=== PATIENT | male | born 1945 | race Caucasian/White ===

== ENCOUNTER 2023-01-12 23:37 | Inpatient (IN) | payer MEDICARE, OTHER ==
[2023-01-13 00:10] VITALS: BMI 20.9
[2023-01-13] MEDS ORDERED: Calcium Carbonate 500 MG ChewTAB PO PRN (00:11)
[2023-01-13] MEDS ORDERED: HYDROcodone/Acetaminophen 5/325 mg Tablet PO PRN (00:11)
[2023-01-13] MEDS ORDERED: Senokot S 8.6-50 MG TAB PO PRN (00:11)
[2023-01-13] MEDS ORDERED: Acetaminophen 325 MG TAB PO PRN (00:11)
[2023-01-13] MEDS ORDERED: Guaifenesin DM 100-10/5 ML UDCUP PO PRN (00:11)
[2023-01-13] MEDS ORDERED: Zolpidem Tartrate 5 MG TAB PO PRN (00:11)
[2023-01-13] MEDS ORDERED: Ondansetron PF 4 MG/2 ML Vial IVP PRN (00:11)
[2023-01-13] MEDS ORDERED: Nitroglycerin 0.4 MG TAB (25 Tab Bottle) SL PRN (00:26)
[2023-01-13] MEDS ORDERED: Sodium Chloride 0.9% 500 ML IV SCH (00:30)
[2023-01-13 01:12] LABS: CKMB 5.2 ng/mL (0-6.6)
[2023-01-13 05:52] LABS: Anion Gap 14 mmol/L (10-20); BUN (Urea Nitrogen) 18 mg/dL (8.4-25.7); CK (CPK) 191 U/L (30-200); Calc. Creatinine Clearance 55 mL/min (70-130); Calcium 8.7 mg/dL (7.8-10.44); Carbon Dioxide 21 mmol/L (23-31); Chloride 111 mmol/L (98-107); Estimated GFR 75; Glucose 96 mg/dL (83-110); Potassium 4.2 mmol/L (3.5-5.1); Sodium 142 mmol/L (136-145)
[2023-01-13 06:08] LABS: CKMB 4.5 ng/mL (0-6.6)
[2023-01-13] MEDS: Thiamine 100 MG TAB PO SCH (09:43)
[2023-01-13] MEDS: Aspirin 81 mg Enteric Coated Tablet PO SCH (09:43)
[2023-01-13] MEDS: Metoprolol Tartrate 25 MG TAB PO SCH ×3 (09:44→22:23)
[2023-01-13] MEDS: Folic Acid 1 MG TAB PO SCH (09:46)
[2023-01-13] MEDS: Multivitamin W/ Minerals 1 TAB PO SCH (09:46)
[2023-01-13] MEDS ORDERED: Lorazepam 1 MG TAB PO PRN (09:59)
[2023-01-13] MEDS ORDERED: Lorazepam 2 MG/ML VIAL IVPB PRN (09:59)
[2023-01-13] MEDS ORDERED: Electrolyte Replacement Protocol 1 EACH FS PRN (10:00)
[2023-01-13] MEDS ORDERED: Nicotine 14 MG PATCH TD PRN (10:01)
[2023-01-13 11:38] LABS: Troponin I 0.052 ng/mL (< 0.028)
[2023-01-13] MEDS ORDERED: Communication Order-Pharmacy FS SCH (13:15)
[2023-01-13] MEDS: Atorvastatin Calcium 20 MG TAB PO SCH (22:23)
[2023-01-14] MEDS: Thiamine 100 MG TAB PO SCH (05:57)
[2023-01-14] MEDS: Folic Acid 1 MG TAB PO SCH (05:57)
[2023-01-14] MEDS: Multivitamin W/ Minerals 1 TAB PO SCH (05:57)
[2023-01-14] MEDS: Metoprolol Tartrate 25 MG TAB PO SCH ×2 (05:58→20:17)
[2023-01-14] MEDS: Aspirin 81 mg Enteric Coated Tablet PO SCH (05:58)
[2023-01-14] MEDS: Sodium Chloride 0.9% 1,000 ML IV SCH ×4 (05:59→20:17)
[2023-01-14 06:17] LABS: #Basophils 0.1 10x3/uL (0.0-0.2); #Eosinphils 0.4 10x3/uL (0.0-0.5); #Monocytes 0.5 10x3/uL (0.0-1.1); #Neutrophils 4.1 10x3/uL (1.5-8.4); %Basophils 1.5 % (0.0-2.0); %Eosinophils 6.1 % (0.0-6.0); %Lymphocytes 25.6 % (18.0-47.0); %Monocytes 7.2 % (0.0-10.0); %Neutrophils 59.5 % (40.0-75.0); Hemoglobin 15.3 g/dL (13.5-17.5); Mean Corpuscular HGB CONC 33.3 g/dL (32.0-36.0); Mean Corpuscular Hemoglobin 31.5 pg (27.0-33.0); Mean Corpuscular Volume 94.4 fl (81.2-95.1); Mean Platelet Volume 9.3 fl (7.4-10.4); Platelet Count 212 10x3/uL (150-450); RBC Distribution Width 13.9 % (11.5-14.5); Red Blood Cell (RBC) Count 4.86 10x6/uL (4.32-5.72); White Blood Cell (WBC) Count 6.8 10x3/uL (3.5-10.5)
[2023-01-14 06:42] LABS: Anion Gap 15 mmol/L (10-20); BUN (Urea Nitrogen) 17 mg/dL (8.4-25.7); Calc. Creatinine Clearance 50 mL/min (70-130); Calcium 8.9 mg/dL (7.8-10.44); Carbon Dioxide 22 mmol/L (23-31); Chloride 106 mmol/L (98-107); Estimated GFR 66; Glucose 104 mg/dL (83-110); Magnesium 1.9 mg/dL (1.6-2.6); Phosphorus 3.1 mg/dL (2.3-4.7); Potassium 3.7 mmol/L (3.5-5.1); Sodium 139 mmol/L (136-145)
[2023-01-14] MEDS ORDERED: Lidocaine 1% (PF) 30 ML VIAL ONE (07:07)
[2023-01-14] MEDS ORDERED: Nitroglycerin 50 MG/250 ML BOT 250 ML ONE (07:08)
[2023-01-14] MEDS ORDERED: Lidocaine 1% MPF 2 ML VIAL ONE ×2 (07:08)
[2023-01-14] MEDS ORDERED: Heparin 10,000 UNITS/ 10 ML VIAL ONE (07:08)
[2023-01-14] MEDS ORDERED: Bivalirudin 250 MG VIAL ONE (07:09)
[2023-01-14] MEDS ORDERED: Adenosine 6 MG/2 ML VIAL ONE (07:09)
[2023-01-14] MEDS ORDERED: Verapamil 5 MG/2 ML VIAL ONE (07:11)
[2023-01-14] MEDS ORDERED: Midazolam HCl 2 mg/2 ml Vial ONE (07:14)
[2023-01-14] MEDS ORDERED: Fentanyl 100 MCG/2 ML VIAL ONE (07:14)
[2023-01-14] MEDS ORDERED: Magnesium 2 GM/50 ML(in water) 2 GM in Premix Bag 1 BAG IVPB SCH (09:00)
[2023-01-14] MEDS ORDERED: TICAGRELOR 90 MG TABLET ONE (09:19)
[2023-01-14] MEDS ORDERED: Iopamidol 300 61% 100 ML VIAL FS ONE (09:20)
[2023-01-14] MEDS ORDERED: Lorazepam 1 MG TAB PO PRN (09:59)
[2023-01-14] MEDS: TICAGRELOR 90 MG TABLET PO SCH (20:17)
[2023-01-14] MEDS: Atorvastatin Calcium 20 MG TAB PO SCH (20:17)
[2023-01-15] MEDS: Sodium Chloride 0.9% 1,000 ML IV SCH ×3 (00:48→08:30)
[2023-01-15 04:05] LABS: #Basophils 0.1 10x3/uL (0.0-0.2); #Eosinphils 0.3 10x3/uL (0.0-0.5); #Monocytes 0.6 10x3/uL (0.0-1.1); #Neutrophils 4.3 10x3/uL (1.5-8.4); %Basophils 1.1 % (0.0-2.0); %Eosinophils 3.9 % (0.0-6.0); %Lymphocytes 20.6 % (18.0-47.0); %Monocytes 8.3 % (0.0-10.0); %Neutrophils 65.8 % (40.0-75.0); Hemoglobin 13.9 g/dL (13.5-17.5); Mean Corpuscular HGB CONC 33.3 g/dL (32.0-36.0); Mean Corpuscular Hemoglobin 31.2 pg (27.0-33.0); Mean Corpuscular Volume 93.9 fl (81.2-95.1); Mean Platelet Volume 9.7 fl (7.4-10.4); Platelet Count 178 10x3/uL (150-450); RBC Distribution Width 13.8 % (11.5-14.5); Red Blood Cell (RBC) Count 4.45 10x6/uL (4.32-5.72); White Blood Cell (WBC) Count 6.6 10x3/uL (3.5-10.5)
[2023-01-15 04:19] LABS: ALT (SGPT) 17 U/L (8-55); AST (SGOT) 19 U/L (5-34); Albumin 3.4 g/dL (3.4-4.8); Alkaline Phosphatase 49 U/L (40-110); Anion Gap 9 mmol/L (10-20); BUN (Urea Nitrogen) 13 mg/dL (8.4-25.7); Bilirubin, Total 1.2 mg/dL (0.2-1.2); Calc. Creatinine Clearance 61 mL/min (70-130); Calcium 8.6 mg/dL (7.8-10.44); Carbon Dioxide 25 mmol/L (23-31); Chloride 110 mmol/L (98-107); Estimated GFR 85; Globulin 2.3 g/dL (2.4-3.5); Glucose 99 mg/dL (83-110); Magnesium 2.1 mg/dL (1.6-2.6); Protein, Total 5.7 g/dL (5.8-8.1); Sodium 140 mmol/L (136-145)
[2023-01-15] MEDS: Metoprolol Tartrate 25 MG TAB PO SCH (08:30)
[2023-01-15] MEDS: Thiamine 100 MG TAB PO SCH (08:30)
[2023-01-15] MEDS: Aspirin 81 mg Enteric Coated Tablet PO SCH (08:30)
[2023-01-15] MEDS: TICAGRELOR 90 MG TABLET PO SCH (08:30)
[2023-01-15] MEDS: Multivitamin W/ Minerals 1 TAB PO SCH (08:31)
[2023-01-15] MEDS: Folic Acid 1 MG TAB PO SCH (08:31)
[2023-01-15] MEDS ORDERED: Lorazepam 1 MG TAB PO PRN (09:59)
[2023-01-15 12:59] VITALS: BP 177/77; TEMP 97.5
[2023-01-16] MEDS ORDERED: Lorazepam 0.5 MG TAB PO PRN (09:59)
== END 2023-01-15 12:50 | disposition home or self-care (01) | DRG 247 ==
LOC: INTOOBSV 23:37 → CSHTELE 23:37 → OBSVTOIN 01-15 12:44
PROVIDERS: ADMIT Student in an Organized Health Care Education/Training Program; ATTEND Internal Medicine
PROC: 027034Z Dilation of Coronary Artery, One Artery with Drug-eluting Intraluminal Device, Percutaneous Approach (ICD-10-PCS; principal; 2023-01-14)
PROC: 4A023N7 Measurement of Cardiac Sampling and Pressure, Left Heart, Percutaneous Approach (ICD-10-PCS; 2023-01-14)
PROC: B2111ZZ Fluoroscopy of Multiple Coronary Arteries using Low Osmolar Contrast (ICD-10-PCS; 2023-01-14)
PROC: B2151ZZ Fluoroscopy of Left Heart using Low Osmolar Contrast (ICD-10-PCS; 2023-01-14)
DX: I25.110 Atherosclerotic heart disease of native coronary artery with unstable angina pectoris (principal); I25.2 Old myocardial infarction; F17.210 Nicotine dependence, cigarettes, uncomplicated; E78.5 Hyperlipidemia, unspecified; N40.0 Benign prostatic hyperplasia without lower urinary tract symptoms; N18.2 Chronic kidney disease, stage 2 (mild); E78.2 Mixed hyperlipidemia; I12.9 Hypertensive chronic kidney disease with stage 1 through stage 4 chronic kidney disease, or unspecified chronic kidney disease; R77.8 Other specified abnormalities of plasma proteins; Z20.822 Contact with and (suspected) exposure to COVID-19; Z82.49 Family history of ischemic heart disease and other diseases of the circulatory system; Z79.02 Long term (current) use of antithrombotics/antiplatelets; Z98.890 Other specified postprocedural states; Z95.5 Presence of coronary angioplasty implant and graft; Z79.899 Other long term (current) drug therapy; Z79.82 Long term (current) use of aspirin; Z91.14 Patient's other noncompliance with medication regimen
CPT/HCPCS: 36415; 80048; 80053; 82550; 82553; 83735; 84100; 84484; 85025; 92928; 92978; 92979; 93005; 93010; 93306; 93458; 96372; 96374; 97139; 99152; 99153; C1753; C1769; C1874; C1887; C1894; C9600; G0378; J0153; J0583; J1644; J1650; J2001; J2250; J3010; J3475; J7030; J7050; Q9967; U0003; U0005